=== PATIENT | male | born 1955 | race African-American/Black ===

== ENCOUNTER → 2021-04-14 | Day surgery (SDC) | payer OTHER ==
[2021-04-13 10:43] LABS: BASOPHILS % 0.7 % (0.0-1.0); EOSINOPHILS % 0.7 % (0.0-6.0); HEMATOCRIT 37.8 % (38.2-49.6); HEMOGLOBIN 12.1 g/dL (14.0-18.0); LYMPHOCYTES % 34.3 % (18.0-39.1); MEAN CORPUSCULAR HEMOGLOBIN 28.9 pg (28-32); MEAN CORPUSCULAR VOLUME 90.2 fL (81-99); MONOCYTES # (AUTO) 0.6 (0.2-0.8); MONOCYTES % 10.3 % (4.4-11.3); NEUTROPHILS # (AUTO) 3.1 (2.1-6.9); NEUTROPHILS % 53.8 % (38.7-80.0); PLATELET COUNT 152 x10e3/uL (140-360); RED BLOOD COUNT 4.19 x10e6/uL (4.3-5.7); RED CELL DISTRIBUTION WIDTH 13.3 % (11.7-14.4)
[~2021-04-14] MED LIST: AMLODIPINE BESYL5 MG PO; COREG12.5 MG PO; GABAPENTIN100 MG PO; HYDROCHLOROTHIA25 MG PO; LOSARTAN POTAS100 MG PO; METFORMIN HCL500 MG PO; SIMETHICONE 40 MG/0.6 ML BTL ONE; SIMVASTATIN40 MG PO
[2021-04-14 08:10] VITALS: BP 151/91
== END | disposition home or self-care (01) ==
LOC: OR 06:49
PROVIDERS: ATTEND Internal Medicine Gastroenterology
DX: K29.50 Unspecified chronic gastritis without bleeding (principal); D12.5 Benign neoplasm of sigmoid colon; B96.81 Helicobacter pylori [H. pylori] as the cause of diseases classified elsewhere; K29.60 Other gastritis without bleeding; K59.00 Constipation, unspecified; K44.9 Diaphragmatic hernia without obstruction or gangrene; Z71.3 Dietary counseling and surveillance; G47.33 Obstructive sleep apnea (adult) (pediatric); R16.0 Hepatomegaly, not elsewhere classified; D64.9 Anemia, unspecified; E11.9 Type 2 diabetes mellitus without complications; I10 Essential (primary) hypertension; E78.5 Hyperlipidemia, unspecified; E66.01 Morbid (severe) obesity due to excess calories; F17.200 Nicotine dependence, unspecified, uncomplicated; Z01.810 Encounter for preprocedural cardiovascular examination; Z01.812 Encounter for preprocedural laboratory examination; Z20.822 Contact with and (suspected) exposure to COVID-19; Z79.84 Long term (current) use of oral hypoglycemic drugs; Z68.42 Body mass index [BMI] 45.0-49.9, adult
CPT/HCPCS: 36415 ×2; 43239; 45380; 82948; 85025; 88305; 88312; 93005; U0002; 45378